=== PATIENT | male | born 1945 | race Caucasian/White ===

== ENCOUNTER 2016-07-20 10:00 | Observation (INO) | payer OTHER ==
[~2016-07-20] VITALS: Ht 167.6 cm; Wt 69.4 kg
[2016-07-20 12:22] VITALS: BP 163/95; PULSE 84; TEMP 36.5; O2SAT 97; BMI 23.1
[2016-07-20] MEDS ORDERED: ONDANSETRON INJ 2 MG/ML 2 ML VIAL IV PRN (13:00)
[2016-07-20] MEDS ORDERED: POLYETHYLENE (MIRALAX) 17 GM PACK PO PRN (13:00)
[2016-07-20] MEDS ORDERED: PHARMACIST DISCHARGE MED REC CONSULT PRN (13:00)
[2016-07-20] MEDS ORDERED: ALUMINUM/MAGNESIUM/SIMETH (MAALOX MAX) 30 ML UDC PO PRN (13:00)
[2016-07-20] MEDS ORDERED: ACETAMINOPHEN 325 MG TAB PO PRN (13:00)
[2016-07-20] MEDS ORDERED: MAGNESIUM HYDROXIDE SUSP 30 ML UDC PO PRN (13:00)
[2016-07-20] MEDS ORDERED: VTMD1000 PO (13:03)
[2016-07-20] MEDS ORDERED: MCRK20 PO (13:03)
[2016-07-20] MEDS ORDERED: OMEP20TA PO (13:03)
[2016-07-20] MEDS ORDERED: ASPEC81 PO (13:03)
[2016-07-20] MEDS ORDERED: SIMV20TA2 PO (13:03)
[2016-07-20] MEDS ORDERED: MECL1TAB42 PO (13:03)
[2016-07-20] MEDS ORDERED: CRAN500C2 PO (13:03)
[2016-07-20] MEDS ORDERED: MULTTAB58 PO (13:03)
[2016-07-20] MEDS ORDERED: FERR28TA2 PO (13:03)
[2016-07-20] MEDS ORDERED: GLIP5TAB3 PO (13:03)
[2016-07-20] MEDS ORDERED: OMEG10007 PO (13:03)
[2016-07-20] MEDS ORDERED: LSN5 PO (13:03)
[2016-07-20] MEDS ORDERED: METF1000 PO (13:03)
--- NOTE | 2016-07-20 13:12 | History and Physical ---
History & Physical Date & Time of Service: July 20, 2016 at 13:12 Chief Complaint: Ataxia Primary Care Physician: No Doctor, Assigned Home Medications Scheduled Aspirin (Aspirin EC Low Dose), 1 TAB PO DAILY Cholecalciferol (Vitamin D3), 2 TABS PO DAILY Cranberry (Vaccinium Macrocarp (Cranberry), 1 TAB PO DAILY Ferrous Sulfate (Iron), 1 TAB PO DAILY Fish Oil ([place]-3), 1 CAP PO DAILY Glipizide (Glucotrol), 1 TAB PO BID Lisinopril (Lisinopril), 1 TAB PO DAILY Metformin Hcl (Glucophage), 1,000 MG PO BID Multiple Vitamin (Multivitamin), 1 TAB PO DAILY Omeprazole (Omeprazole), 1 TAB PO DAILY Potassium Chloride (Klor-Con M20), 1 TAB PO DAILY Simvastatin (Zocor), 1 TAB PO DAILY Scheduled PRN Meclizine Hcl (Meclizine Hcl), 1 TAB PO TID PRN for Dizziness or Vertigo Diagnostics Laboratory Results Results Past 24 Hours Test 07/20/16 12:53 Range/Units Impression Assessment and Plan obs #[id number] VTE Prophylaxis VTE Risk Assessment Done? Y/N: Yes Risk Level: Moderate
[2016-07-20] MEDS ORDERED: PATIENT'S ALLERGY INFO NEEDS ENTERED SCH (13:30)
--- NOTE | 2016-07-20 14:02 | HISTORY & PHYSICAL EXAMINATION ---
DATE OF ADMISSION: 07/20/2016 CHIEF COMPLAINT: Unsteadiness. HISTORY OF PRESENT ILLNESS: The patient is a very pleasant 71-year-old male who notes that he has been in his usual state of health until he woke up at about 3 in the morning needing to use the bathroom and noted he was markedly unsteady trying to get up, he had to basically hold onto the wall to keep from falling. He did not notice any spinning, any dizziness, did not feel like he was on a boat that was rocking, he just could not keep his balance. He also did not notice any pain, did not notice his legs feeling like he was getting out and did not notice any specific numbness or weakness. He was able to go to the bathroom and then he decided maybe his sugar was low, so he got some coffee and egg and some other food, but the symptoms persisted and so then finally with those symptoms going on for as long as they were he decided to go to the ER for further evaluation. He went to [place] where they had high suspicion for stroke. They are not able to do MRI on weekends and certainly do not have the same capabilities overall and the hospitalist in [place] as well as the ER doctor felt the patient would get better care at a higher level facility so we were asked to see him in transfer and he is here on our telemetry unit. REVIEW OF SYSTEMS: Negative for any preceding symptoms, he has not had any back pain. He does not have any injury or anything that he knows of that could be leading to this. He does not have any focal numbness or weakness. Nothing really seemed to cause it, nothing really brings it on or makes it go away, most notably there is absolutely no spinning, lightheaded, dizzy, faint or earth unsteady type sensations with this. REVIEW OF SYSTEMS: Otherwise negative, except for as above. PAST MEDICAL HISTORY: Includes type 2 diabetes. He notes recently he has been a bit uncontrolled but notes uncontrolled for him as an A1c of 7.1. He has probably been a diabetic about 20 years and has no known complications, hyperlipidemia he believes maybe. He is on simvastatin. He is not sure if he truly has elevated cholesterol or if it is more because of risk reduction with the diabetes. He has had 2 episodes of bleeding stomach ulcer, although the last one was about 5 years ago. Prior nephrolithiasis. PAST SURGICAL HISTORY: Lithotripsy and endoscopies. FAMILY HISTORY: Really for longevity. He denies any significant family history otherwise. MEDICATIONS: Lisinopril 5 mg daily, omeprazole 20 mg daily, glipizide 5 mg b.i.d., metformin 1000 mg b.i.d., aspirin 81 mg at bedtime, simvastatin 20 mg daily, fish oil 1000 mg daily, multivitamin daily, Vitamin D3 400 units daily, potassium uncertain dose daily, cranberry 475 daily, iron 28 mg daily, meclizine 25 mg daily. ALLERGIES: No known drug allergies. SOCIAL HISTORY: He is retired. He tries to stay fairly active. He does not quantify exactly how much he walks, but he notes that he walks almost every day. He is an ex-smoker, it is almost impossible to quantify his pack years because he smoked on and off for probably 30 or 40 years, but it is unclear how much of that time was smoking versus quitting but also when he smoked he smoked exceedingly heavily to the tune of about 4 packs a day. No significant alcohol, no drugs. PHYSICAL EXAMINATION: VITAL SIGNS: His blood pressure is about 160/80 here noting that he does not normally run high at all. His vital signs at [facility] showed a blood pressure 158/77, heart rate 75, respiratory rate 16, 97% on room air, temperature 98 degrees Fahrenheit. GENERAL: He is awake, alert, oriented x3, pleasant, in no acute distress. HEAD, EYES, EARS, NOSE, AND THROAT: Normocephalic, atraumatic. Mucous membranes are moist. CARDIOVASCULAR: Regular without rubs, murmurs, or gallops. LUNGS: Clear to auscultation bilaterally. No rales, rhonchi, or wheezes with good effort. ABDOMEN: Soft, nondistended, nontender, no masses or organomegaly. EXTREMITIES: Without cyanosis, clubbing or edema. No calf tenderness. SKIN: Shows no rashes, no pallor or icterus. NEUROLOGIC: Shows cranial nerves II-XII to be grossly intact. He shows no focal motor or sensory deficits. He has good point to point and good rapid alternating movements. He has a negative Rhomberg however when we try to walk him he has marked unsteadiness, he is walking with a bit of a wide gait, shuffling gait and even with that periodically just starts to lose his balance suddenly unpredictably and rather dramatically and he notes when this happened, he does not really feel it coming, he does not feel like his legs giving out. There is no numbness. He does not feel like the earth just shifted, he does even really have the ability to describe why he is looking like he is going to go over but it happens. SKIN: Shows no rashes, no pallor or icterus. He is fairly tanned. MUSCULOSKELETAL EXAMINATION: Shows no spinal tenderness, no other gross deformities or lesions. MENTAL STATE: Shows good recent and remote recall. Normal mood and affect. Good judgment and insight. LABORATORIES AND DIAGNOSTICS: CT head done at [place] showed no bleed, no stroke. His sinuses were clear. No evidence of skull fracture. CBC shows a white count of 6.2, hemoglobin 14.2, platelets 184 with an MCV of 87.3, Sodium is 141, potassium 4.2, chloride 103, CO2 29, BUN 20, creatinine 0.8, glucose 199, calcium 9.2, total bili 0.7 with an AST of 25, ALT 35, total protein 7.5, albumin 4.1, alk phos 66, CK total of 267 with an MB of 3. Troponin of less than 0.02. Mag 1.6, PT of 12. PTT of 31.4. BNP of 16.5. D-dimer of 116 within upper limits of normal for their lab of 400. EKG was sinus rhythm. ASSESSMENT AND PLAN: 1. Unsteady gait. Because of his lack of peripheral symptoms or nystagmus or any sort of vertiginous sensation, unfortunately a stroke appears to be the most likely diagnosis. Certainly the diagnosis of exclusion. Because of the not clearcut diagnosis will proceed with an MRI of his brain as well as looking for source with checking lipids and A1c and following his blood pressure, checking carotid ultrasound and possibly needing to get better imaging as the vertebral circulation because of the likelihood of the posterior stroke, following his rhythm, checking an echocardiogram. We will have PT and OT evaluate. Certainly if there is any diagnostic uncertainty will enlist the assistance of neurology, but currently with his symptoms if the MRI confirms stroke everything would appear to be fairly straightforward as far as management. Will also hold his simvastatin in favor of a more higher potency statin with Lipitor 40 for now pending his lipid panel. 2. Type 2 diabetes. Check an A1c. Continue his metformin and glipizide, fingersticks, diabetic diet and supplemental insulin as needed. 3. Presumed hyperlipidemia, changing from simvastatin to atorvastatin as above. 4. Elevated blood pressure. He notes that he is only on the lisinopril because of being a diabetic and does not normally have hypertension. 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 5. Prior peptic ulcer disease with bleeding ulcers. Continue his PPI. 6. Deep venous thrombosis prophylaxis Lovenox.
[2016-07-20] MEDS ORDERED: IV FLUIDS COMPLETED PRN (14:15)
--- NOTE | 2016-07-20 14:44 | ECHOCARDIOGRAM REPORT ---
*NOTICE TO RECEIVING [employer] This information is strictly Confidential and protected under [place] law. [place] law prohibits you from making any further disclosure of this information unless further disclosure is expressly permitted by the written consent of the person to whom it pertains or is authorized by law. A general authorization for the release of medical or other information is not sufficient for this purpose. Hospital accepts no responsibility if the information is made available to any other person, INCLUDING THE PATIENT. Interpretation Summary * Name: PETRA HOWELL Study Date: 07/20/2016 01:15 PM * Patient Location: [facility]\S\S244\S\1 HR: 61 * : 1945 (M/d/yyyy) Gender: Male Height: 66 in * Age: 71 yrs Ethnicity: CA Weight: 150 lb * Ordering Physician: Dangelo Leal * Referring Physician: Dangelo Leal D.O. * Performed By: Jessica Fitzpatrick RCS * * Reason For Study: STROKE * BSA: 1.8 m2 * -- Conclusions -- * 1. Normal LV size. Mild concentric LVH. * 2. Normal LV systolic function. LVEF 55-60%. No regional wall motion abnormalities. * 3. Normal RV size and function. * 4. Mild aortic sclerosis without stenosis. * 5. Positive saline contrast study for right to left interatrial shunt. * 6. No prior studies for comparison. Procedure Details * A complete two-dimensional transthoracic echocardiogram was performed (2D, M-mode, Doppler and color flow Doppler). * A saline contrast injection was performed to assess for cardiac shunting. * The injection was performed through an intravenous line in the left arm. * The attending nurse who injected the saline contrast was KATELIN FERNANDEZ, RN. * A total of 30 cc of agitated saline was given. Left Ventricle * The left ventricle is grossly normal size. * There is mild concentric left ventricular hypertrophy. * Ejection Fraction = 55-60%. * No regional wall motion abnormalities noted. Right Ventricle * The right ventricle is grossly normal size. * The right ventricular systolic function is normal as assessed by tricuspid annular plane systolic excursion (TAPSE) (normal >1.5 cm). Atria * Borderline left atrial enlargement. * Right atrial size is normal. * There is no Doppler evidence for an atrial septal defect. * Injection of contrast documented an interatrial shunt. Mitral Valve * There is mild mitral annular calcification. * The mitral valve leaflets appear thickened, but open well. * There is no mitral valve stenosis. * Significant mitral regurgitation is absent. Tricuspid Valve * The tricuspid valve is not well visualized, but is grossly normal. * There is no tricuspid stenosis. * Significant tricuspid regurgitation is absent. Aortic Valve * Aortic valve sclerosis mild, without significant aortic valvular stenosis. * No hemodynamically significant valvular aortic stenosis. * There is no significant aortic regurgitation. Pulmonic Valve * The pulmonic valve is not well seen, but is grossly normal. * There is no pulmonic valvular stenosis. * Trace pulmonic valvular regurgitation. Great Vessels * The aortic root and proximal ascending aorta are normal sized. Pericardium/Pleural * There is no pericardial effusion. Great Vessels * IVC <50% change with respiratin, < 2.1. Estimated RA 8 mmHg MMode 2D Measurements and Calculations IVSd 1.4 cm IVSs 1.9 cm LVIDd 4.0 cm LVIDs 2.6 cm LVPWd 1.1 cm LVPWs 1.6 cm IVS/LVPW 1.3 FS 36.0 % EDV(Teich) 70.2 ml ESV(Teich) 23.7 ml EF(Teich) 66.2 % EDV(cubed) 64.2 ml ESV(cubed) 16.8 ml EF(cubed) 73.8 % % IVS thick 35.5 % % LVPW thick 42.5 % LV mass(C)d 177.1 grams LV mass(C)dI 100.1 grams/m\S\2 LV mass(C)s 169.8 grams LV mass(C)sI 95.9 grams/m\S\2 SV(Teich) 46.5 ml SI(Teich) 26.3 ml/m\S\2 SV(cubed) 47.4 ml SI(cubed) 26.8 ml/m\S\2 Ao root diam 3.8 cm Ao root area 11.2 cm\S\2 ACS 1.7 cm LA dimension 3.9 cm LA/Ao 1.0 LVOT diam 2.0 cm LVOT area 3.1 cm\S\2 LVAd ap4 29.9 cm\S\2 LVLd ap4 7.8 cm EDV(MOD-sp4) 94.4 ml EDV(sp4-el) 97.7 ml LVAs ap4 18.7 cm\S\2 LVLs ap4 6.6 cm ESV(MOD-sp4) 43.9 ml ESV(sp4-el) 45.0 ml EF(MOD-sp4) 53.5 % EF(sp4-el) 53.9 % LVAd ap2 29.3 cm\S\2 LVLd ap2 7.7 cm EDV(MOD-sp2) 92.0 ml EDV(sp2-el) 94.4 ml LVAs ap2 17.8 cm\S\2 LVLs ap2 6.5 cm ESV(MOD-sp2) 42.3 ml ESV(sp2-el) 41.8 ml EF(MOD-sp2) 54.0 % EF(sp2-el) 55.7 % LVLd %diff -0.97 % EDV(MOD-bp) 93.2 ml LVLs %diff -2.39 % ESV(MOD-bp) 43.4 ml EF(MOD-bp) 53.5 % SV(MOD-sp4) 50.5 ml SI(MOD-sp4) 28.5 ml/m\S\2 SV(MOD-sp2) 49.7 ml SI(MOD-sp2) 28.1 ml/m\S\2 SV(MOD-bp) 49.9 ml SI(MOD-bp) 28.2 ml/m\S\2 SV(sp4-el) 52.6 ml SI(sp4-el) 29.7 ml/m\S\2 SV(sp2-el) 52.6 ml SI(sp2-el) 29.7 ml/m\S\2 Doppler Measurements and Calculations MV E max thomas 93.8 cm/sec MV A max thomas 87.4 cm/sec MV E/A 1.1 MV P1/2t max thomas 95.3 cm/sec MV P1/2t 73.2 msec MVA(P1/2t) 3.0 cm\S\2 MV dec slope 381.4 cm/sec\S\2 MV dec time 0.26 sec Ao V2 max 89.5 cm/sec Ao max PG 3.2 mmHg Ao max PG (full) 0.99 mmHg EDUARDO(V,A) 2.5 cm\S\2 EDUARDO(V,D) 2.5 cm\S\2 LV V1 max PG 2.2 mmHg LV V1 max 74.4 cm/sec PA V2 max 81.2 cm/sec PA max PG 2.6 mmHg
[2016-07-20 14:56] LABS: HEMATOCRIT 40.7 % (42-52); MEAN CELL VOLUME 90.6 fL (80-100); MEAN CORPUSCULAR HEMOGLOBIN 30.5 pg (25-34); MEAN CORPUSCULAR HGB CONC 33.7 g/dl (32-36); MEAN PLATELET VOLUME 9.8 fL (7.4-10.4); PLATELET COUNT 170 K/uL (130-400); RED BLOOD COUNT 4.49 M/uL (4.7-6.1); WHITE BLOOD COUNT 6.16 K/uL (4.8-10.8)
[2016-07-20 15:02] LABS: INR 1.1 (0.9-1.1); PROTHROMBIN TIME (PATIENT) 11.4 SECONDS (9.0-12.0)
[2016-07-20 15:23] LABS: CREATININE 0.75 mg/dl (0.60-1.40)
[2016-07-20 16:00] VITALS: O2SAT 97
[2016-07-20 16:10] VITALS: BP 139/78; PULSE 68; TEMP 36.5; O2SAT 99
--- NOTE | 2016-07-20 16:14 | DIAGNOSTIC IMAGING REPORT ---
Brain MRI WITHOUT CONTRAST HISTORY: Mental status change Stroke TECHNIQUE: Multiplanar multisequence MRI of the brain was performed without the use of contrast. COMPARISON STUDY: None. FINDINGS: There are no areas of restricted diffusion to suggest acute infarction. The midline structures are intact. The paranasal sinuses are clear. The mastoid air cells are clear. The ventricles and sulci are within normal limits for age. There is no mass, hematoma, midline shift. The major vascular flow-voids at the skull base are well maintained. IMPRESSION: No acute intracranial abnormality. Mild chronic small vessel change of aging Electronically signed by: David Frankel M.D. 07/20/2016 4:13 PM Dictated Date/Time: 07/20/2016 4:12 PM
[2016-07-20] MEDS: INSULIN ASPART 100 UNITS/ML 3 ML PEN SC SCH ×2 (16:15→21:00)
[2016-07-20] MEDS: METFORMIN HCL 500 MG TAB PO SCH (17:03)
--- NOTE | 2016-07-20 18:41 | DIAGNOSTIC IMAGING REPORT ---
BILATERAL CAROTID DOPPLER STUDY HISTORY: Mental status change Stroke COMPARISON: None. TECHNIQUE: Real-time, grayscale, and color Doppler sonography of the carotid arteries was performed. Imaging reviewed in the transverse and longitudinal planes. All measurements were calculated based on NASCET criteria. FINDINGS: Antegrade flow is seen in the bilateral vertebral arteries. The brachial pressures are hemodynamically similar. Considerable plaque formation bilaterally The peak systolic velocity within the right ICA is 66. The right systolic ratio is 7.8. The peak systolic velocity within the left ICA is 93. The left systolic ratio is 1.3. IMPRESSION: 1. Considerable plaque formation bilaterally. 2. No significant stenotic process of the common or internal carotid arteries. 3. Significant stenosis of the external carotid arteries bilaterally Electronically signed by: David Frankel M.D. 07/20/2016 6:40 PM Dictated Date/Time: 07/20/2016 6:39 PM
[2016-07-20 19:20] VITALS: BP 144/71; PULSE 67; TEMP 36.8; O2SAT 96
[2016-07-20] MEDS: ENOXAPARIN 40 MG/0.4 ML SYR SC SCH (21:31)
[2016-07-21] VITALS (8 sets, daily range): BP systolic 109–170; BP diastolic 51–82; PULSE 57–71; TEMP 36.4–36.6; O2SAT 96–99
[2016-07-21] MEDS: INSULIN ASPART 100 UNITS/ML 3 ML PEN SC SCH ×4 (08:03→20:33)
[2016-07-21] MEDS: ASPIRIN 81 MG ECTAB PO SCH (08:05)
[2016-07-21] MEDS: METFORMIN HCL 500 MG TAB PO SCH ×2 (08:05→16:45)
[2016-07-21] MEDS: FERROUS SULFATE 325 MG TAB PO SCH (08:05)
[2016-07-21] MEDS: ATORVASTATIN 40 MG TAB PO SCH (08:06)
[2016-07-21] MEDS: PANTOprazole SOD 40 MG TAB PO SCH (08:06)
[2016-07-21] MEDS: MULTIVITAMIN TAB PO SCH (08:06)
[2016-07-21] MEDS: CHOLECALCIFEROL 1000 INTER.UNIT TAB PO SCH (08:07)
[2016-07-21] MEDS: LISINOPRIL 5 MG TAB PO SCH (08:07)
[2016-07-21] MEDS: OMEGA-3 (PURIFIED FISH OIL) 1 GM CAP PO SCH (08:07)
[2016-07-21 08:12] LABS: CHOLESTEROL/HDL RATIO 2.2
[2016-07-21] MEDS ORDERED: NON-FORMULARY MEDICATION (Cranberry (Vaccinium Macrocarp (Cranberry) 1 TAB) PO SCH (09:00)
[2016-07-21] MEDS ORDERED: SIMVASTATIN 20 MG TAB PO SCH (09:00)
[2016-07-21] MEDS ORDERED: PHARMACIST DISCHARGE MED REC CONSULT PRN (15:00)
[2016-07-21] MEDS ORDERED: ASPI325T4 PO (16:11)
[2016-07-21] MEDS ORDERED: ATOR-54 PO (16:11)
--- NOTE | 2016-07-21 16:13 | Discharge Instructions ---
Discharge Instructions Date of Service July 21, 2016. Admission Reason for Admission: Unsteady Gait Discharge Discharge Diagnosis / Problem: ataxia Discharge Goals Goal(s): Improve function Activity Recommendations Activity Limitations: resume your previous activity Lifting Limitations: no more than 5 pounds Exercise/Sports Limitations: as tolerated May Resume Sexual Activity: when tolerated Shower/Bathe: no limitations Driving or Machine Use: no limitations . Instructions / Follow-Up Instructions / Follow-Up Risk Factors for Stroke: You can reduce your chances of stroke by working with your medical provider to adopt a healthy lifestyle. Some specific ways to lower your chance of stroke are: * If you are a smoker, now is the time to stop smoking cigarettes * If you are diabetic, improve the control of your blood sugars * Avoid excessive amounts of alcohol * Control high blood pressure * Lose weight if you are overweight * Be sure to lead an active lifestyle * Eat a healthy diet low in salt, cholesterol and fat You should know about other risk factors for stroke that you are unable to control. These include: * Age 55 years or older * Male gender * Certain racial groups: , or / * Family History of Stroke, Mini stroke or Heart Attack * Sickle Cell Disease Follow Up: It is important for you to keep your follow up appointments with your medical provider. Current Hospital Diet Patient's current hospital diet: Diabetes Type 2 Diet Discharge Diet Recommended Diet: Low Sodium Diet (2gm Na), Diabetes Type 2 Diet Fluid Restriction: 1800 ml (7 cups) Pending Studies Studies pending at discharge: yes (HgbA1C) List of pending studies: HgbA1C Laboratory Results Hemoglobin A1c Test 07/20/16 14:48 Range/Units Lipid Panel Test 07/21/16 07:24 Range/Units Triglycerides Level 90 0-150 mg/dl Cholesterol Level 109 0-200 mg/dl HDL Cholesterol 50 mg/dl Cholesterol/HDL Ratio 2.2 LDL Cholesterol, Calculated 41 mg/dl Medical Emergencies . Who to Call and When: Medical Emergencies: Call 911 immediately if you experience any of the following warning signs and symptoms of Stroke: * Sudden numbness or weakness of the face, arm or leg, especially on one side of the body * Sudden confusion, trouble speaking or understanding * Sudden trouble seeing in one or both eyes * Sudden trouble walking, dizziness, loss of balance or coordination * Sudden severe headache with no cause Do not delay calling 911 if you experience any warning signs or symptoms of a stroke. Delay in seeking medical attention may affect what treatments can be given to you. . Non-Emergent Contact Non-Emergency issues call your: Primary Care Provider . . "Provider Documentation" section prepared by Jeff Kim. . Stroke Core Measures Reason no t-PA for Stroke: Treatment provided - N/A Reason no antithrom by day 2: Treatment provided - N/A Reason no antithrom at D/C: Treatment provided - N/A Reason no statin at D/C: Treatment provided - N/A Reason no anticoag w/a fib: Treatment not indicated VTE Core Measure Inpt VTE Proph given/why not?: Enoxaparin (Lovenox)SQ
[2016-07-21] MEDS ORDERED: OPTIRAY 320 IV PRN (17:00)
[2016-07-21] MEDS ORDERED: NURSING VERBAL MED ORDER ONE (17:15)
--- NOTE | 2016-07-21 19:06 | DIAGNOSTIC IMAGING REPORT ---
HEAD CTA HISTORY: Stroke symptoms. Mental status change. TECHNIQUE: Multiaxial CT images of the head were performed both before and after the intravenous administration of contrast to evaluate the major cerebral vessels. Maximum intensity projection images were also obtained. COMPARISON: Brain MRI 07/20/2016. Outside hospital head CT 07/20/2016. FINDINGS: Mild calcified plaque within the bilateral carotid siphons. Visualized intracranial internal carotid arteries, distal vertebral arteries, and basilar artery are widely patent. There is no significant stenosis, occlusion, or aneurysm seen within the bilateral ACAs, MCAs, or maintenance journeyman. IMPRESSION: No significant stenosis, occlusion, or aneurysm within the [place]. Electronically signed by: Zeyad Morin M.D. 07/21/2016 7:05 PM Dictated Date/Time: 07/21/2016 6:59 PM
--- NOTE | 2016-07-21 19:13 | DIAGNOSTIC IMAGING REPORT ---
NECK CTA HISTORY: Stroke symptoms. Altered mental status. TECHNIQUE: Multiaxial CT images of the neck were performed following the intravenous administration of contrast to evaluate the major cervical vessels. Maximum intensity projection images were also obtained. All measurements were calculated based on NASCET criteria. COMPARISON STUDY: None. FINDINGS: The aortic arch and proximal great vessels are widely patent. There is mild focal stenosis at the origin of the left vertebral artery. Mild calcified plaque at the aortic arch and proximal great vessels. No significant stenosis within the right vertebral artery. Tortuous bilateral internal carotid arteries. Mild scattered calcified plaque within the bilateral common carotid arteries without significant stenosis. Moderate calcified plaque within the bilateral carotid bifurcations. No significant stenosis within the right internal or external carotid arteries. There is 30-40% focal stenosis at the left carotid bulb. Remaining portions of the mid to distal left internal carotid artery are widely patent. There is mild stenosis at the origin of the left external carotid artery. IMPRESSION: 1. Moderate calcified plaque within the bilateral carotid bifurcations. This results in 30-40% focal stenosis at the left carotid bulb. Otherwise, the remaining bilateral common and internal carotid arteries are widely patent. 2. Mild focal stenosis at the origin of the left vertebral artery. Electronically signed by: Zeyad Morin M.D. 07/21/2016 7:12 PM Dictated Date/Time: 07/21/2016 7:05 PM
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
[2016-07-21] MEDS ORDERED: SODIUM CHLORIDE 0.9% 1000ML 1,000 ML IV SCH (20:00)
[2016-07-21] MEDS: ENOXAPARIN 40 MG/0.4 ML SYR SC SCH (20:33)
[2016-07-22 04:39] VITALS: BP 112/63; PULSE 67; TEMP 36.9; O2SAT 97
[2016-07-22 07:19] LABS: BASO % 0.6 %; BASO ABS # 0.03 K/uL (0-0.2); COMPLETE YES; HEMATOCRIT 41.8 % (42-52); IG% 0.2 %; LYMPH % 25.1 %; LYMPH ABS # 1.25 K/uL (1.2-3.4); MEAN CELL VOLUME 90.5 fL (80-100); MEAN CORPUSCULAR HEMOGLOBIN 30.5 pg (25-34); MEAN CORPUSCULAR HGB CONC 33.7 g/dl (32-36); MEAN PLATELET VOLUME 10.5 fL (7.4-10.4); NEUT % 60.1 %; PLATELET COUNT 174 K/uL (130-400); RED BLOOD COUNT 4.62 M/uL (4.7-6.1); WHITE BLOOD COUNT 4.99 K/uL (4.8-10.8)
[2016-07-22 07:24] LABS: ESTIMATED AVERAGE GLUCOSE 180 mg/dl; HA1C FLAG Normal (Normal)
[2016-07-22 07:40] VITALS: BP 122/60; PULSE 62; TEMP 36.6; O2SAT 97
[2016-07-22] MEDS: ASPIRIN 81 MG ECTAB PO SCH (07:53)
[2016-07-22] MEDS: PANTOprazole SOD 40 MG TAB PO SCH (07:53)
[2016-07-22] MEDS: CHOLECALCIFEROL 1000 INTER.UNIT TAB PO SCH (07:54)
[2016-07-22] MEDS: OMEGA-3 (PURIFIED FISH OIL) 1 GM CAP PO SCH (07:54)
[2016-07-22] MEDS: LISINOPRIL 5 MG TAB PO SCH (07:54)
[2016-07-22] MEDS: MULTIVITAMIN TAB PO SCH (07:54)
[2016-07-22] MEDS: ATORVASTATIN 40 MG TAB PO SCH (07:55)
[2016-07-22] MEDS: FERROUS SULFATE 325 MG TAB PO SCH (07:55)
[2016-07-22 07:56] LABS: BUN/CREATININE RATIO 15.4 (10-20); CALCIUM 8.6 mg/dl (8.5-10.1); CREATININE 0.78 mg/dl (0.60-1.40); POTASSIUM 4.3 mmol/L (3.5-5.1)
[2016-07-22] MEDS: INSULIN ASPART 100 UNITS/ML 3 ML PEN SC SCH ×2 (07:56→12:00)
[2016-07-22 07:58] LABS: ALB/GLOB RATIO 1.2 (0.9-2); PHOSPHORUS 3.5 mg/dl (2.5-4.9)
[2016-07-22 08:00] VITALS: O2SAT 97
[2016-07-22] MEDS ORDERED: GLUCOSE 10 TABS/TUBE PO PRN (09:00)
[2016-07-22] MEDS ORDERED: DEXTROSE 50% 50 ML SYR IV PRN (09:00)
[2016-07-22] MEDS ORDERED: GLUCAGON FOR INJ 1 MG VIAL SQ PRN (09:00)
[2016-07-22] MEDS ORDERED: GLUCOSE 40% GEL 15 GM TUBE PO PRN (09:00)
[2016-07-22 11:57] VITALS: TEMP 36.9; O2SAT 65
[2016-07-22] MEDS ORDERED: ATOR-54 PO (11:58)
[2016-07-22] MEDS ORDERED: ASPI325T4 PO (11:58)
[2016-07-22] MEDS ORDERED: OMEP40CA41 PO (11:58)
[2016-07-22 12:02] VITALS: BP 122/60; PULSE 62; TEMP 36.9; O2SAT 65
--- NOTE | 2016-07-22 12:08 | Discharge Instructions ---
Discharge Instructions Date of Service July 22, 2016. Admission Reason for Admission: Unsteady Gait Discharge Discharge Diagnosis / Problem: Unsteadiness on feet - exact cause uncertain Discharge Goals Goal(s): Learn about illness, Diagnostic testing, Therapeutic intervention Activity Recommendations Activity Limitations: resume your previous activity . Instructions / Follow-Up Instructions / Follow-Up Risk Factors for Stroke: You can reduce your chances of stroke by working with your medical provider to adopt a healthy lifestyle. Some specific ways to lower your chance of stroke are: * If you are a smoker, now is the time to stop smoking cigarettes * If you are diabetic, improve the control of your blood sugars * Avoid excessive amounts of alcohol * Control high blood pressure * Lose weight if you are overweight * Be sure to lead an active lifestyle * Eat a healthy diet low in salt, cholesterol and fat You should know about other risk factors for stroke that you are unable to control. These include: * Age 55 years or older * Male gender * Certain racial groups: , or / * Family History of Stroke, Mini stroke or Heart Attack * Sickle Cell Disease Other instructions from Dr. Irving - 1. Since you had contrast for your CAT scan yesterday you will need to HOLD your metformin at the time of discharge. 2. Please have your primary care doctor check a "BMP" (basic metabolic panel) to ensure your kidney function level is normal following the CAT scans. If found to be normal (I anticipate it will be) then at that time your metformin can be resumed. Would have your family doctor recheck the BMP in 1-2 days. 3. Please increase your prilosec (omeprazole) to 40mg once daily. New prescription sent to [facility]. 4. Please increase your aspirin to 325mg once daily; stop the 81mg. New prescription sent to [facility]. 5. Use lipitor in place of the simvastatin. New prescription sent to [facility]. 6. Stop your lisinopril for now as your blood pressures have been fine without it. The exact cause of your dizziness is unknown. You did NOT have a stroke. All of your testing was normal except for a "PFO" (Patent foramen ovale). This is a small "hole" or communication in the top of the heart. Up to 20% of the population has this. We typically recommend, in certain circumstances, people take 325mg of aspirin daily for this. It theoretically can lead to strokes. In your case I do not think it played any role in your presenting symptoms/ dizziness, however. Whether this was a "TIA" (transient ischemic attack) is uncertain. TIA is a temporary neurological symptom that comes on and resolves itself. As a precautionary measure we are checking your vitamin B12 level and some other labs that can contribute to dizziness. I will call you if these are abnormal. Follow-up: 1. see your family doctor within 5-7 days 2. schedule the "BMP" in 1-2 days Current Hospital Diet Patient's current hospital diet: Diabetes Type 2 Diet Discharge Diet Recommended Diet: Diabetes Type 2 Diet Procedures Procedures Performed: MRI brain - normal. CAT scan of the blood vessels of the head and neck - all normal. Echocardiogram - normal, but you do have a "PFO". See description. Pending Studies Studies pending at discharge: yes List of pending studies: Iron levels. B12 level. Folic acid level. Laboratory Results Hemoglobin A1c Test 07/20/16 14:48 Range/Units Estimated Average Glucose 180 mg/dl Hemoglobin A1c 7.9 H 4.5-5.6 % Lipid Panel Test 07/21/16 07:24 Range/Units Triglycerides Level 90 0-150 mg/dl Cholesterol Level 109 0-200 mg/dl HDL Cholesterol 50 mg/dl Cholesterol/HDL Ratio 2.2 LDL Cholesterol, Calculated 41 mg/dl Medical Emergencies . Who to Call and When: Medical Emergencies: Call 911 immediately if you experience any of the following warning signs and symptoms of Stroke: * Sudden numbness or weakness of the face, arm or leg, especially on one side of the body * Sudden confusion, trouble speaking or understanding * Sudden trouble seeing in one or both eyes * Sudden trouble walking, dizziness, loss of balance or coordination * Sudden severe headache with no cause Do not delay calling 911 if you experience any warning signs or symptoms of a stroke. Delay in seeking medical attention may affect what treatments can be given to you. . Non-Emergent Contact Non-Emergency issues call your: Primary Care Provider Call Non-Emergent contact if: temperature is above 100.5, you have any medication questions . . "Provider Documentation" section prepared by Anatoly Irving. . Stroke Core Measures Reason no t-PA for Stroke: Treatment not indicated Reason no antithrom by day 2: Treatment provided - N/A Reason no antithrom at D/C: Treatment provided - N/A Reason no statin at D/C: Treatment provided - N/A Reason no anticoag w/a fib: Treatment not indicated VTE Core Measure Inpt VTE Proph given/why not?: Enoxaparin (Lovenox)SQ
[2016-07-22] MEDS ORDERED: IV FLUIDS COMPLETED PRN (12:45)
[2016-07-22 12:49] VITALS: Ht 167.6 cm; Wt 69.4 kg
[2016-07-22 13:20] LABS: FERRITIN 45.3 ng/ml (8.0-388.0)
--- NOTE | 2016-07-23 10:57 | EDITING REQUIRED CODING QUERY ---
CODING CLARIFICATION Diagnoses of probable, most likely, consistent with, rule out etc cannot be coded on an outpatient/observation status. Please clarify below the presence of a TIA: ( ) TIA was present during this admission ( ) TIA was ruled out during this admission ( ) TIA cannot be confirmed ( ) Other, please clarify: Thank you for your assistance, Cortney Francois - Echocardiologist
--- NOTE | 2016-07-30 11:41 | Discharge Summary ---
Discharge Summary Date of Service July 30, 2016. Discharge Summary Admission Date: July 20, 2016 at 12:15 Discharge Date: July 21, 2016 Discharge Disposition: Home Principal Diagnosis: dizziness, uncertain etiology - possible TIA Problems/Secondary Diagnoses: 1. T2DM 2. hyperlipidemia 3. HTN 4. PFO found on echo Procedures: 1. carotid duplex study - IMPRESSION: 1. Considerable plaque formation bilaterally. 2. No significant stenotic process of the common or internal carotid arteries. 3. Significant stenosis of the external carotid arteries bilaterally. 2. MRI brain - IMPRESSION: No acute intracranial abnormality. Mild chronic small vessel change of aging. 3. CTA neck - IMPRESSION: 1. Moderate calcified plaque within the bilateral carotid bifurcations. This results in 30-40% focal stenosis at the left carotid bulb. Otherwise, the remaining bilateral common and internal carotid arteries are widely patent. 2. Mild focal stenosis at the origin of the left vertebral artery. 4. CTA head - IMPRESSION: No significant stenosis, occlusion, or aneurysm within the de[place] of [place]. 5. echocardiogram - * -- Conclusions -- * 1. Normal LV size. Mild concentric LVH. * 2. Normal LV systolic function. LVEF 55-60%. No regional wall motion abnormalities. * 3. Normal RV size and function. * 4. Mild aortic sclerosis without stenosis. * 5. Positive saline contrast study for right to left interatrial shunt. * 6. No prior studies for comparison. Consultations: PT, OT Medication Reconciliation New Medications: Aspirin (Aspirin) 325 Mg Tab 325 MG PO DAILY for 30 Days, #30 TAB 2 Refills Atorvastatin (Lipitor) 20 Mg Tab 1 TAB PO DAILY for 30 Days, #30 TAB 2 Refills Changed Medications: Omeprazole (Prilosec) 40 Mg Cap 1 CAP PO DAILY for 30 Days, #30 CAP 2 Refills (Changed from: Omeprazole 20 Mg Tab 1 Tab PO DAILY 90 Days #90 TAB Ref 1) Continued Medications: Cholecalciferol (Vitamin D3) 1,000 Inter.unit Tab 2 TABS PO DAILY, #1 TABS Cranberry (Vaccinium Macrocarp (Cranberry) 500 Mg Cap 1 TAB PO DAILY, #1 TAB Ferrous Sulfate (Iron) 28 Mg Tab 1 TAB PO DAILY, #1 TABS Fish Oil (Carlos-3) 1 Ea Cap 1 CAP PO DAILY, #1 CAP Glipizide (Glucotrol) 5 Mg Tab 1 TAB PO BID for 30 Days, #60 TAB 5 Refills Meclizine Hcl (Meclizine Hcl) 25 Mg Tab 1 TAB PO TID PRN for Dizziness or Vertigo for 30 Days, #90 TAB Metformin Hcl (Glucophage) 1,000 Mg Tab 1000 MG PO BID, #1 TAB Multiple Vitamin (Multivitamin) 1 Tab Tab 1 TAB PO DAILY for 90 Days, #90 TAB 3 Refills Potassium Chloride (Klor-Con M20) 20 Meq Tabcr 1 TAB PO DAILY, #1 TABS home dose not certain for this med Discontinued Medications: Aspirin (Aspirin EC Low Dose) 81 Mg Ectab 1 TAB PO DAILY, #1 TAB Lisinopril (Lisinopril) 5 Mg Tab 1 TAB PO DAILY, #1 TAB Simvastatin (Zocor) 20 Mg Tab 1 TAB PO DAILY for 90 Days, #90 TAB 1 Refill Discharge Exam Physical Exam: General Appearance: WD/WN, no apparent distress ENT: pharynx normal Neck: no JVD Respiratory/Chest: lungs clear, no respiratory distress, no accessory muscle use Cardiovascular: regular rate, rhythm, no gallop, no murmur, normal peripheral pulses Abdomen / GI: normal bowel sounds, non tender, soft, no organomegaly Extremities: no pedal edema 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 He did not notice any spinning or vertigo, any dizziness, did not feel like he was on a boat that was rocking, he just could not keep his balance. He noticed that his legs felt like they could give out. He was able to go to the bathroom and then he decided maybe his sugar was low, so he got some coffee and egg and some other food, but the symptoms persisted and so then finally with those symptoms going on for as long as they were he decided to go to the ER for further evaluation. He went to [place] [facility] where they had high suspicion for stroke. They are not able to do MRI on weekends and certainly do not have the same capabilities overall and the hospitalist in [place] as well as the ER doctor felt the patient would get better care at a higher level facility so we were asked to see him in transfer and he is here on our telemetry unit. HOSPITAL COURSE: After transfer from [facility] the patient remained neurologically stable. His neurological exam remained normal. His dizziness was completely resolved. He underwent an extensive work-up including MRI brain, CTA head/neck, echocardiogram, and carotid duplex all of which were essentially normal except for a PFO on echo. Telemetry failed to show any dysrhythmia. Lipid profile demonstrated an LDL < 70. Sed rate, vitamin B12/folate levels, CPK, iron studies, and all other labs were normal except for a hemoglobin a1c of 7.9%. He was seen in consult by PT/OT and did well with each. Gait was noted to be normal. At the conclusion of his stay he was counseled that the exact etiology of his presenting dizziness was unknown. It is possible that this could have been a posterior circulation TIA but this, too, was uncertain. In light of the PFO and the uncertain cause of his symptoms we suggested he increase his aspirin to 325mg daily for secondary prevention. We also recommended an increase in his PPI for GI prophylaxis in light of prior gastric ulcers and the need for ongoing aspirin therapy. Further we changed his statin agent to lipitor. He will need a repeat BMP in 1-2 days after discharge to ensure his creatinine is stable. If so then metformin can be resumed at that time. Total Time Spent: Greater than 30 minutes This includes examination of the patient, discharge planning, medication reconciliation, and communication with other providers. Discharge Instructions Please refer to the electronic Patient Visit Report (Discharge Instructions) for additional information. Follow-Up 1. needs Basic Metabolic Panel in 1-2 days to ensure stability of creatinine due to recent contrast administration 2. follow-up with PCP within 3-5 days Additional Copies To Aline Li
--- NOTE | 2016-08-13 10:51 | EDITING REQUIRED CODING QUERY ---
DIAGNOSIS NEEDED To promote full compliance with coding requirements relating to patient care, physician participation is requested in all cases of traffic representative uncertainty. Please assist us with the question(s) below: Coding Question: The patient received care in labor and delivery on 08/10/16 as noted within the record. Please document the diagnosis that is being addressed by the medication/treatment. Provider Response: DIAGNOSIS: Thank you for your assistance, Cortney Francois - Designer/Writer
== END 2016-07-22 13:00 | disposition home or self-care (01) ==
LOC: C.2T 12:15
PROVIDERS: ADMIT Family Medicine; ATTEND Internal Medicine
DX: R27.0 Ataxia, unspecified (principal); E11.9 Type 2 diabetes mellitus without complications; I10 Essential (primary) hypertension; E78.00 Pure hypercholesterolemia, unspecified; Z87.891 Personal history of nicotine dependence; Z79.82 Long term (current) use of aspirin; I65.23 Occlusion and stenosis of bilateral carotid arteries